=== PATIENT | female | born 1960 | race Caucasian/White ===

== ENCOUNTER 2022-02-16 13:03 | Observation (INO) | payer BC, OTHER ==
[~2022-02-16] VITALS: Ht 170.2 cm; Wt 105.7 kg
[~2022-02-16 13:03] MED LIST: ALEVE220 MG PO; FLEXERIL 10 MG10 MG PO; GLUCOPHAGE 500500 MG PO; HYDROCHLOROTHIA25 MG PO; LISINOPRIL20 MG PO; OMEPRAZOLE20 MG PO; PERCOCET 5/325 T1 EA PO; TYLENOL EXTRA500 MG PO; ULTRAM50 MG PO; Voltaren Gel 1 % TOP; XALATAN OP SOL2.5 ML EYEBOTH; ZOFRAN4 MG PO
[2022-02-16 15:00] LABS: RED BLOOD COUNT 4.68 M/UL (4.00-5.10); WHITE BLOOD COUNT 8.6 K/UL (4.5-11.0)
[2022-02-16 15:42] LABS: BUN/CREATININE RATIO 22 (0-10)
[2022-02-17 02:09] LABS: HEMOGLOBIN 12.2 gm/dl (12.3-15.3); RED BLOOD COUNT 4.35 M/UL (4.00-5.10); WHITE BLOOD COUNT 8.2 K/UL (4.5-11.0)
[2022-02-17 02:35] LABS: BUN/CREATININE RATIO 22 (0-10)
[2022-02-17] MEDS ORDERED: METFORMIN HCL500 MG PO (10:17)
== END 2022-02-17 18:30 | disposition home or self-care (01) ==
LOC: ER1 13:03 → CDU 16:12 → MED SURG 4 02-17 04:43
PROVIDERS: Physician Assistant; ADMIT Internal Medicine
DX: R07.89 Other chest pain (principal); R00.2 Palpitations; I10 Essential (primary) hypertension; E11.9 Type 2 diabetes mellitus without complications; Z88.1 Allergy status to other antibiotic agents; Z88.8 Allergy status to other drugs, medicaments and biological substances; Z90.49 Acquired absence of other specified parts of digestive tract; Z98.890 Other specified postprocedural states; Z79.84 Long term (current) use of oral hypoglycemic drugs; Z79.899 Other long term (current) drug therapy
CPT/HCPCS: ECHO; 71045; 78452; 80048; 80053; 80061; 81001; 82550; 82553; 82962; 83735; 84439; 84443; 84484; 85025; 85379; 87086; 93005; 93270; 93306; 99285; A9502; G0378; J2785